=== PATIENT | male | born 1965 | race Caucasian/White ===

== ENCOUNTER 2016-11-17 07:29 | Day surgery (SDC) | payer OTHER ==
--- NOTE | 2016-11-17 07:36 | EDPHY ---
H & P Time Seen by Provider: 11/17/16 07:35 HPI/ROS: CHIEF COMPLAINT: Abdominal pain HISTORY OF PRESENT ILLNESS: [place] fine yesterday, awakened at 4:00 a.m. with pain in his abdomen. Epigastric and radiates to the right upper quadrant. Associated with nausea and worse when he tried to drink some water. Also had some loose stool x4 this morning but no melena or blood per rectum. Symptoms moderate to severe at this time. REVIEW OF SYSTEMS: Eye: no change in vision ENT: no sore throat Cardiac: no chest pain or syncope Pulmonary: no cough or SOB Abdomen: HPI Musculoskeletal: no back pain Skin: no rash Neuro: no headache Constitutional: no fever : no urinary symptoms A comprehensive 10 point review of systems is otherwise negative aside from elements mentioned in the history of present illness. PAST MEDICAL HISTORY: Hand surgery, negative for diabetes or hypertension. No previous abdominal surgeries. Family history: Gallstones in his mother Social history: Smoker, denies alcohol. No primary care physician. General Appearance: Alert and conversant, cooperative. Eyes: No scleral icterus. ENT, Mouth: Normal mucous membranes. Respiratory: Normal respiratory effort, breath sounds equal, lungs are clear to auscultation. Cardiovascular: Regular rate and rhythm. Gastrointestinal: Epigastric tenderness but no Gallagher sign. Neurological: Alert and oriented x3. Normally conversant. Face symmetric, normal movement and sensation in all extremities. Ambulatory, walked to the room without ataxia. Skin: Warm and dry, no rashes. Musculoskeletal: No peripheral edema and no joint swelling. Psychiatric: Not agitated. Emergency Department course/MDM: Differential broad and includes but is not limited to acute coronary syndrome, GERD, cholelithiasis or cholecystitis, pancreatitis, hepatitis, appendicitis, viral or food related gastroenteritis. Zofran 4 mg IV for nausea, normal saline 1000 mL IV, fentanyl 100 mcg IV. Labs to include lipase and liver function tests, EKG, gallbladder ultrasound. 917: Isa US fatty liver otherwise negative. 927: Patient feels better but still has tenderness around his umbilicus and epigastric area on palpation. CT scanning discussed and consented. Labs and ultrasound discussed. 1021: 1cm stone impacted in cystic duct on CT, otherwise negative. 1029: Results discussed with patient, additional 0.5 mg IV Dilaudid, plan for surgical consultation. Seen by Dr. Taylor in the emergency department, plan to proceed directly to operating room from the emergency department. Smoking Status: Current every day smoker Constitutional: Initial Vital Signs Temperature (C) 36.5 C 11/17/16 07:32 Heart Rate 68 11/17/16 07:32 Respiratory Rate 18 11/17/16 07:32 Blood Pressure 174/111 H 11/17/16 07:32 O2 Sat (%) 95 11/17/16 07:32 O2 Delivery Mode Room Air O2 (L/minute) 2 Allergies/Adverse Reactions: ibuprofen Allergy (Verified 11/17/16 07:32) Home Medications: Medication Instructions Recorded NK [No Known Home Meds] 11/17/16 Medical Decision Making - Diagnostics EKG Interpretation: 12-lead EKG interpreted by me; official reading is in trace master. My interpretation is normal sinus rhythm, no acute ischemic changes. Imaging Results: Imaging Impressions Abdomen Ultrasound 11/17/16 07:41 IMPRESSION: 1. Normal sonographic appearance of the gallbladder. 2. Diffuse hepatic steatosis, with no bile duct dilatation. Findings were discussed with EMMETT REO MD at 9:16 AM, on 11/17/2016. Abdomen CT 11/17/16 09:36 Impression: Gallstone impacted in the proximal cystic duct with findings of mild cholecystitis. Results called and discussed with EMMETT ROE, at 11/17/2016 10:19 General information for patients regarding this examination can be found at [email or web address]. If you have questions or comments about this report, please contact me at [phone] (hospital) or [phone] (cell). . Consult/Admit Bed Type: [facility] - Data Points Laboratory Results: Laboratory Results 11/17/16 07:45 11/17/16 07:45 11/17/16 11/17/16 07:45 07:45 WBC 9.30 10^3/uL 10^3/uL (3.80-9.50) RBC 4.90 10^6/uL 10^6/uL (4.40-6.38) Hgb 16.6 g/dL g/dL (13.7-17.5) Hct 47.7 % % (40.0-51.0) MCV 97.3 fL fL (81.5-99.8) MCH 33.9 pg pg (27.9-34.1) MCHC 34.8 g/dL g/dL (32.4-36.7) RDW 13.3 % % (11.5-15.2) Plt Count 184 10^3/uL 10^3/uL (150-400) MPV 11.3 fL fL (8.7-11.7) Neut % (Auto) 67.6 % % (39.3-74.2) Lymph % (Auto) 24.3 % % (15.0-45.0) [place] % (Auto) 6.2 % % (4.5-13.0) Eos % (Auto) 1.0 % % (0.6-7.6) Baso % (Auto) 0.6 % % (0.3-1.7) Nucleat RBC Rel Count 0.0 % % (0.0-0.2) Absolute Neuts (auto) 6.28 10^3/uL 10^3/uL (1.70-6.50) Absolute Lymphs (auto) 2.26 10^3/uL 10^3/uL (1.00-3.00) Absolute Monos (auto) 0.58 10^3/uL 10^3/uL (0.30-0.80) Absolute Eos (auto) 0.09 10^3/uL 10^3/uL (0.03-0.40) Absolute Basos (auto) 0.06 10^3/uL 10^3/uL (0.02-0.10) Absolute Nucleated RBC 0.00 10^3/uL 10^3/uL (0-0.01) Immature Gran % 0.3 % % (0.0-1.1) Immature Gran # 0.03 10^3/uL 10^3/uL (0.00-0.10) Sodium 146 mEq/L H mEq/L (134-144) Potassium 4.5 mEq/L mEq/L (3.5-5.2) Chloride 113 mEq/L H mEq/L (97-110) Carbon Dioxide 22 mEq/l mEq/l (22-31) Anion Gap 11 mEq/L mEq/L (8-16) BUN 24 mg/dL H mg/dL (7-23) Creatinine 1.0 mg/dL mg/dL (0.7-1.3) Estimated GFR > 60 Glucose 120 mg/dL H mg/dL (70-100) Calcium 9.6 mg/dL mg/dL (8.5-10.4) Total Bilirubin 0.5 mg/dL mg/dL (0.1-1.4) Conjugated Bilirubin 0.3 mg/dL mg/dL (0.0-0.5) Unconjugated Bilirubin 0.2 mg/dL mg/dL (0.0-1.1) AST 26 IU/L IU/L (17-59) ALT 46 IU/L IU/L (21-72) Alkaline Phosphatase 83 IU/L IU/L (38-126) Total Protein 7.8 g/dL g/dL (6.3-8.2) Albumin 4.5 g/dL g/dL (3.5-5.0) Lipase 127.0 IU/L IU/L (23-300) Medications Given: Discontinued Medications Fentanyl (Sublimaze) 100 mcg IVP EDNOW ONE Stop: 11/17/16 07:42 Last Admin: 11/17/16 07:53 Dose: 100 mcg Hydromorphone HCl (Dilaudid) 0.5 mg IVP EDNOW ONE Stop: 11/17/16 10:30 Last Admin: 11/17/16 10:33 Dose: 0.5 mg Sodium Chloride (Ns) 1,000 mls @ 0 mls/hr IV EDNOW ONE; Wide Open PRN Reason: Protocol Stop: 11/17/16 07:42 Last Admin: 11/17/16 07:52 Dose: 1,000 mls Sodium Chloride (Ns) 1,000 mls @ 0 mls/hr IV EDNOW ONE; Wide Open PRN Reason: Protocol Stop: 11/17/16 10:32 Last Admin: 11/17/16 10:37 Dose: 1,000 mls Ondansetron HCl (Zofran) 4 mg IVP EDNOW ONE Stop: 11/17/16 07:42 Last Admin: 11/17/16 07:53 Dose: 4 mg Departure - Departure Disposition: To OP Cath/Surgery Clinical Impression: Biliary colic Condition: Good
[2016-11-17] MEDS ORDERED: fentaNYL 100 MCG/2 ML INJ IVP ONE (07:41)
[2016-11-17] MEDS ORDERED: ONDANSETRON 4 MG/2 ML VIAL IVP ONE (07:41)
[2016-11-17] MEDS ORDERED: NS 1,000 ML IV ONE ×2 (07:41→10:31)
--- NOTE | 2016-11-17 07:54 | CPEKG ---
Heart Rate: 60 RR Interval: 1000 P-R Interval: 152 QRSD Interval: 86 QT Interval: 396 QTC Interval: 396 P [place]: -7 QRS [place]: -1 T Wave [place]: 16 EKG Severity - NORMAL ECG - EKG Impression: SINUS RHYTHM Electronically Signed By: Adarsh Quintana 17-Nov-2016 07:57:16
[2016-11-17 07:58] LABS: % IMMATURE GRANULYOCYTES 0.3 % (0.0-1.1); ABSOLUTE IMMATURE GRANULOCYTES 0.03 10^3/uL (0.00-0.10); ADD DIFF? NO; ADD MORPH? NO; ADD SCAN? NO; ATYPICAL LYMPHOCYTE FLAG 10 (0-99); FRAGMENT RBC FLAG 0 (0-99); HEMATOCRIT 47.7 % (40.0-51.0); HEMOGLOBIN 16.6 g/dL (13.7-17.5); LEFT SHIFT FLG 0 (0-99); LIPEMIA HEMOLYSIS FLAG 90 (0-99); MEAN CELL HEMOGLOBIN 33.9 pg (27.9-34.1); MEAN CELL HEMOGLOBIN CONCENTR. 34.8 g/dL (32.4-36.7); MEAN CELL VOLUME 97.3 fL (81.5-99.8); MEAN PLATELET VOLUME 11.3 fL (8.7-11.7); PLATELET CLUMPS FLAG 20 (0-99); PLATELET COUNT 184 10^3/uL (150-400); RED CELL DISTRIBUTION WIDTH 13.3 % (11.5-15.2)
[2016-11-17 08:14] LABS: ALANINE AMINOTRANSFERASE 46 IU/L (21-72); ALBUMIN 4.5 g/dL (3.5-5.0); ALKALINE PHOSPHATASE 83 IU/L (38-126); ANION GAP 11 mEq/L (8-16); ASPARTATE AMINOTRANSFERASE 26 IU/L (17-59); BILIRUBIN,TOTAL 0.5 mg/dL (0.1-1.4); BILIRUBIN-CONJUGATED 0.3 mg/dL (0.0-0.5); BILIRUBIN-UNCONJUGATED 0.2 mg/dL (0.0-1.1); CALCIUM 9.6 mg/dL (8.5-10.4); CARBON DIOXIDE 22 mEq/l (22-31); CHLORIDE 113 mEq/L (97-110); GLOMERULAR FILTRATION RATE > 60; GLUCOSE 120 mg/dL (70-100); POTASSIUM 4.5 mEq/L (3.5-5.2); SODIUM 146 mEq/L (134-144); TOTAL PROTEIN 7.8 g/dL (6.3-8.2)
[2016-11-17] MEDS ORDERED: IOPAMIDOL (ISOVUE-300) 100 ML BTL ONE (09:47)
[2016-11-17] MEDS ORDERED: HYDROmorphONE/DILAUDID 1 MG/ML SYR IVP ONE (10:29)
[2016-11-17] MEDS ORDERED: ceFAZolin 2 GM/DEXTROSE 100 ML IV ONE (11:42)
--- NOTE | 2016-11-17 11:47 | PDGENHP ---
History and Physical - Chief Complaint abd pain - History of Present Illness 51 y/o male with sudden onset abd pain at 0400. He was seen in the ED and ultrasound/CT were performed. CT showed a calcified gallstone in the neck. Surgical consult was requested by Dr. Quintana. 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 Review of Systems Cardiac: Reports: no symptoms Respiratory: Reports: no symptoms Gastrointestinal: Reports: abdominal pain, abdominal distention Physical Exam Temp Pulse Resp BP Pulse Ox 36.5 C 71 18 126/83 H 96 11/17/16 07:32 11/17/16 10:29 11/17/16 10:29 11/17/16 10:29 11/17/16 10:29 O2 (L/minute) 2 Constitutional: obese, other (mild distress) Eyes: anicteric sclera Cardiovascular: regular rate and rhythym Respiratory: no respiratory distress, no rales or rhonchi, clear to auscultation Gastrointestinal: normoactive bowel sounds, tenderness (epigastrium/RUQ) Genitourinary: no bladder fullness Skin: warm Neurologic: AAOx3 Psychiatric: interacting appropriately Lymph, Heme, Immunologic: no cervical LAD Lab Data & Imaging Review 11/17/16 07:45 11/17/16 07:45 WBC 9.30 10^3/uL (3.80-9.50) 11/17/16 07:45 RBC 4.90 10^6/uL (4.40-6.38) 11/17/16 07:45 Hgb 16.6 g/dL (13.7-17.5) 11/17/16 07:45 Hct 47.7 % (40.0-51.0) 11/17/16 07:45 MCV 97.3 fL (81.5-99.8) 11/17/16 07:45 MCH 33.9 pg (27.9-34.1) 11/17/16 07:45 MCHC 34.8 g/dL (32.4-36.7) 11/17/16 07:45 RDW 13.3 % (11.5-15.2) 11/17/16 07:45 Plt Count 184 10^3/uL (150-400) 11/17/16 07:45 MPV 11.3 fL (8.7-11.7) 11/17/16 07:45 Neut % (Auto) 67.6 % (39.3-74.2) 11/17/16 07:45 Lymph % (Auto) 24.3 % (15.0-45.0) 11/17/16 07:45 [place] % (Auto) 6.2 % (4.5-13.0) 11/17/16 07:45 Eos % (Auto) 1.0 % (0.6-7.6) 11/17/16 07:45 Baso % (Auto) 0.6 % (0.3-1.7) 11/17/16 07:45 Nucleat RBC Rel Count 0.0 % (0.0-0.2) 11/17/16 07:45 Absolute Neuts (auto) 6.28 10^3/uL (1.70-6.50) 11/17/16 07:45 Absolute Lymphs (auto) 2.26 10^3/uL (1.00-3.00) 11/17/16 07:45 Absolute Monos (auto) 0.58 10^3/uL (0.30-0.80) 11/17/16 07:45 Absolute Eos (auto) 0.09 10^3/uL (0.03-0.40) 11/17/16 07:45 Absolute Basos (auto) 0.06 10^3/uL (0.02-0.10) 11/17/16 07:45 Absolute Nucleated RBC 0.00 10^3/uL (0-0.01) 11/17/16 07:45 Immature Gran % 0.3 % (0.0-1.1) 11/17/16 07:45 Immature Gran # 0.03 10^3/uL (0.00-0.10) 11/17/16 07:45 Sodium 146 mEq/L (134-144) H 11/17/16 07:45 Potassium 4.5 mEq/L (3.5-5.2) 11/17/16 07:45 Chloride 113 mEq/L (97-110) H 11/17/16 07:45 Carbon Dioxide 22 mEq/l (22-31) 11/17/16 07:45 Anion Gap 11 mEq/L (8-16) 11/17/16 07:45 BUN 24 mg/dL (7-23) H 11/17/16 07:45 Creatinine 1.0 mg/dL (0.7-1.3) 11/17/16 07:45 Estimated GFR > 60 11/17/16 07:45 Glucose 120 mg/dL (70-100) H 11/17/16 07:45 Calcium 9.6 mg/dL (8.5-10.4) 11/17/16 07:45 Total Bilirubin 0.5 mg/dL (0.1-1.4) 11/17/16 07:45 Conjugated Bilirubin 0.3 mg/dL (0.0-0.5) 11/17/16 07:45 Unconjugated Bilirubin 0.2 mg/dL (0.0-1.1) 11/17/16 07:45 AST 26 IU/L (17-59) 11/17/16 07:45 ALT 46 IU/L (21-72) 11/17/16 07:45 Alkaline Phosphatase 83 IU/L (38-126) 11/17/16 07:45 Total Protein 7.8 g/dL (6.3-8.2) 11/17/16 07:45 Albumin 4.5 g/dL (3.5-5.0) 11/17/16 07:45 Lipase 127.0 IU/L (23-300) 11/17/16 07:45 Visualized and Interpreted imaging results: Yes Interpretation: CT shows 1 cm Ca++ stone in neck of gallbladder Assessment & Plan Assessment: cholelithiasis with GB outlet obstruction tobacco use obesity I recommended proceeding with lap cholecystectomy. We discussed the risks and expected recovery as well as the pathophysiology of gallbladder disease. Informed consent was obtained Mc Taylor MD, FACS
[2016-11-17] MEDS ORDERED: LR 1,000 ML IV SCH (12:00)
[2016-11-17] MEDS ORDERED: BUPIVACAINE 0.25% 30 ML SDV ONE (12:33)
[2016-11-17] MEDS ORDERED: MIDAZOLAM 2 MG/2 ML VIAL IVP ONE (12:49)
--- NOTE | 2016-11-17 12:49 | PDANEPAE ---
ANE History of Present Illness Patient presents for Lap Pamela WORTHY Past Medical History - Pulmonary History Hx Oxygen in Use at Home: No Hx Sleep Apnea: No Pulmonary History Comment: Active smoker - Endocrine History Hx Diabetes: No ANE Review of Systems - Exercise capacity Exercise capacity: >=4 METS ANE Patient History - Allergies Allergies/Adverse Reactions: ibuprofen Allergy (Verified 11/17/16 07:32) - Home Medications Home medications: none Home Medications: NK [No Known Home Meds] 11/17/16 [Last Taken Unknown] - NPO status NPO Status: no food or drink >8 hours NPO Since - Liquids (Date): 11/16/16 NPO Since - Liquids (Time): 20:00 NPO Since - Solids (Date): 11/16/16 NPO Since - Solids (Time): 20:00 - Anes Hx Anes Hx: no prior problems - Smoking Hx Smoking Status: Current every day smoker - Alcohol Use Alcohol Use: None ANE Labs/Vital Signs - Labs Result Diagrams: 11/17/16 07:45 11/17/16 07:45 - Vital Signs Blood Pressure: 138/76 Heart Rate: 74 Respiratory Rate: 18 O2 Sat (%): 96 Height: 180.34 cm Weight: 102.058 kg ANE Physical Exam - Airway Neck exam: FROM Mallampati Score: Class 2 Mouth exam: poor dentition - Pulmonary Pulmonary: no respiratory distress - Cardiovascular Cardiovascular: regular rate and rhythym - ASA Status ASA Status: II ANE Anesthesia Plan Anesthesia Plan: general endotracheal anesthesia
[2016-11-17] MEDS ORDERED: LR 1,000 ML IV ONE (12:51)
[2016-11-17] MEDS ORDERED: fentaNYL 100 MCG/2 ML INJ ONE ×2 (12:58→13:48)
[2016-11-17] MEDS ORDERED: ROCURONIUM 50 MG/5 ML VIAL ONE (12:58)
[2016-11-17] MEDS ORDERED: LIDOCAINE 2% 5 ML SDV ONE (12:58)
[2016-11-17] MEDS ORDERED: PROPOFOL 200 MG/20 ML VIAL ONE (12:58)
[2016-11-17] MEDS ORDERED: ONDANSETRON 4 MG/2 ML VIAL ONE (12:59)
[2016-11-17] MEDS ORDERED: DEXAMETHASONE 4 MG/ML VIAL ONE (12:59)
[2016-11-17] MEDS ORDERED: fentaNYL 100 MCG/2 ML INJ IVP PRN (13:33)
[2016-11-17] MEDS ORDERED: HYDROmorphONE/DILAUDID 1 MG/ML SYR IVP PRN (13:33)
[2016-11-17] MEDS ORDERED: LR 500 ML IV PRN (13:33)
[2016-11-17] MEDS ORDERED: ONDANSETRON 4 MG/2 ML VIAL IVP PRN ×2 (13:33→14:40)
[2016-11-17] MEDS ORDERED: NALOXONE HCL 0.4 MG/ML INJ IVP PRN (13:33)
[2016-11-17] MEDS ORDERED: SUGAMMADEX SODIUM 200 MG/2 ML VIAL IVP ONE (13:46)
[2016-11-17] MEDS ORDERED: HYDROCODONE/APAP 5/325 TAB PO PRN (14:43)
[2016-11-17 14:48] VITALS: PULSE 75; TEMP 97.5
--- NOTE | 2016-11-17 15:09 | POSTOPPROG ---
Post Op Note Date of Operation: 11/17/16 Surgeon: Matthew Taylor (, FACS) [employer] Display Builder: Alma Chandler PAS-3 Anesthesiologist: Kendall Perea MD Anesthesia: GET(General Endotracheal) Pre-op Diagnosis: cholelithiasis/cholecystitis Post-op Diagnosis: same Procedure: laparoscopic cholecystectomy Findings: single gallstone impacted in the neck of the gallbladder Inf/Abcess present in the surg proc area at time of surgery?: No Specimen(s): gallbladder
--- NOTE | 2016-11-17 15:30 | POSTANESTH ---
Post Anesthetic Evaluation Cardiovascular Status: Normal, Stable Respiratory Status: Normal, Stable, Similar to Pre-op Cond. Level of Consciousness/Mental Status: Can Participate in Eval Pain Control: Adequate, Prn Tx Ordered Nausea/Vomiting Control: Adequate, Prn Tx Ordered Complications Possibly Related to Anesthesia: None Noted
[2016-11-17 16:34] VITALS: BP 111/77; RESP 16; O2SAT 91
[2016-11-17] MEDS ORDERED: SENNOSIDES/DOCUSATE SODIUM TAB PO SCH (21:00)
--- NOTE | 2016-11-18 01:13 | GOP ---
[f rep st] OPERATIVE REPORT DATE OF OPERATION: 10/28/2016 SURGEON: Matthew Taylor MD, FACS ANESTHESIA: General endotracheal. ANESTHESIOLOGIST: Eric Perea MD. PREOPERATIVE DIAGNOSIS: Cholelithiasis and acute cholecystitis. POSTOPERATIVE DIAGNOSIS: Cholelithiasis and acute cholecystitis. PROCEDURE PERFORMED: FINDINGS: Gallbladder distention with acute and chronic inflammation. Single gallstone impacted into the neck of the gallbladder. ESTIMATED BLOOD LOSS: 10 cc. DESCRIPTION OF PROCEDURE: After informed consent was obtained, the patient was brought to the operating room and placed under general anesthesia. The abdomen was prepped and draped in usual fashion. Before proceeding, a time-out and identification of patient was performed. 0.25% Marcaine was used to infiltrate all incision sites. A transverse incision was made below the umbilicus and carried through the skin and subcutaneous tissues. Ventral traction was applied to the abdominal wall with penetrating towel clamp. A Veress needle was introduced into the peritoneal cavity and position was confirmed by saline infusion. Pneumoperitoneum was then established with CO2 gas to a pressure of 15 mmHg. The Veress needle was withdrawn and replaced with a 12 mm bladeless trocar. The 30 degree 5 mm scope was introduced and the peritoneal cavity was visualized. Reverse Trendelenburg position was used to assist in exposure as the patient had significant visceral fat and the omentum was overlying the liver and gallbladder. Additional 5 mm ports were placed in the subxiphoid position to the right of the falciform ligament, right upper quadrant midclavicular line and right upper quadrant anterior axillary line. This allowed introduction of atraumatic grasping forceps, and these were used to grasp the gallbladder and retract it by the fundus cephalad elevating the liver. The omental adhesions were taken down with the Harmonic Scalpel. The infundibulum of the gallbladder was identified and grasped and retracted anteriorly and posteriorly. The peritoneum surrounding the cystic duct was incised and dissected circumferentially. The cystic artery was posterior and this was dispatched with a Harmonic Scalpel. Once the cystic duct had been clearly identified, it was doubly hemoclipped and divided. The gallbladder was then dissected away from the liver edge using the Harmonic Scalpel with minimal bleeding. The gallbladder was retrieved through the umbilical port site, removed and submitted for permanent section. Hemostasis appeared secure. The umbilical fascial defect was repaired with a transfascial closure needle and 0 Vicryl suture. The pneumoperitoneum was then evacuated. The ports were removed. The skin was closed for all 4 incisions with continuous running 4-0 Monocryl suture in a subcuticular fashion. Mastisol and Steri-Strips were applied. Sterile dressings were placed. Needle , sponge, instrument count were correct. PROCEDURE PERFORMED: Laparoscopic cholecystectomy. RAILROAD BRAKEMAN SURGEON: DIXIE Oreilly=3. COMPLICATIONS: None. Copy requested to: DIXIE Oreilly-3 /[id number]/MODL MTDD
== END 2016-11-17 16:28 | disposition home or self-care (01) ==
LOC: FSGY 11:26
PROVIDERS: ATTEND Surgery
PROC: 0FT44ZZ Resection of Gallbladder, Percutaneous Endoscopic Approach (ICD-10-PCS; principal; 2016-11-17 13:00)
DX: K80.00 Calculus of gallbladder with acute cholecystitis without obstruction (principal)
CPT/HCPCS: 96374; J0690; J1100; J1170; J2250; J2405; J2704; J3010; Q9967